=== PATIENT | female | born 1950 | race Caucasian/White ===

== ENCOUNTER → 2017-02-14 | Outpatient (CLI) | payer MEDICARE, OTHER ==
--- NOTE | 2017-02-14 17:09 | BD ---
EXAMINATION TYPE: MG DEXA axial skeleton. DATE OF EXAM: 02/14/2017 COMPARISON: 2012 CLINICAL HISTORY: disorder of bone Height: 5' Weight: 105 FRAX RISK QUESTIONS: Alcohol (3 or more units per day): no Family History (Parent hip fracture): no Glucocorticoids (More than 3mos): no (Ex: prednisone, prednisolone, methylprednisolone, dexamethasone, and hydrocortisone). History of Fracture in Adulthood: no Secondary Osteoporosis: 1. Type 1 Diabetes: no 2. Hyperthyroidism: no 3. Menopause before 45: no 4. Malnutrition: no 5. Chronic liver disease: no Rheumatoid Arthritis: no Current Tobacco Use: no RISK FACTORS HISTORY OF: Family History of Osteoporosis: Postmenopausal woman: MEDICATIONS: Additional Medications: pain Additional History: EXAM MEASUREMENTS: Bone mineral densitometry was performed using the [employer] ([employer]) System. Bone mineral density as measured about the Lumbar spine is: ----- L1-L4(G/cm2): 1.140 T Score Values are as follows: ----- L2: -0.8 ----- L3: -0.2 ----- L4: 0.3 ----- L1-L4: -0.3 Bone mineral density has: Decreased -2.6% since study of: 04/02/2013 Bone mineral density about the R hip (g/cm2): 0.791 Bone mineral density about the L hip (g/cm2): 0.798 T Score values are as follows: -----R Neck: -1.8 -----L Neck: -1.7 -----R Total: -2.1 -----L Total: -1.5 Bone mineral density has: Increased 1.6% since study of: 04/02/2013 IMPRESSION: Osteopenia (T Score between -2.5 and -1 as noted by T score values There is slightly increased risk of fracture and the patient may be considered for treatment. Re-Screen 2-5 years. Bone density has improved 1.6% from 04/02/2013 within the bilateral hips. Bone density has diminished 2.6% within the lumbar spine from 2012. NOTE: T-SCORE=SD OF THE YOUNG ADULT MEAN.
--- NOTE | 2017-02-15 12:43 | MM ---
Reason for exam: screening (asymptomatic). Last mammogram was performed 2 years and 2 months ago. History: Patient is postmenopausal and had first child at age 31. Family history of breast cancer in maternal aunt. Physical Findings: A clinical breast exam by your physician is recommended on an annual basis and results should be correlated with mammographic findings. MG 3D Screening Mammo W/Cad Bilateral CC and MLO view(s) were taken. Prior study comparison: December 22, 2014, bilateral MG screening mammo w CAD. April 02, 2013, bilateral digital screening mammo w/CAD. The breast tissue is heterogeneously dense. This may lower the sensitivity of mammography. No significant changes when compared with prior studies. ASSESSMENT: Benign, BI-RAD 2 RECOMMENDATION: Routine screening mammogram of both breasts in 1 year.
== END | disposition home or self-care (01) ==
LOC: RADMAMWWP 13:48
PROVIDERS: ATTEND Obstetrics & Gynecology
DX: Z12.31 Encounter for screening mammogram for malignant neoplasm of breast (principal); M85.80 Other specified disorders of bone density and structure, unspecified site
CPT/HCPCS: 77080; 77063; G0202

== ENCOUNTER 2017-03-29 23:34 | Emergency (ER) | payer MEDICARE, OTHER ==
[2017-03-29 23:39] VITALS: RESP 18
--- NOTE | 2017-03-30 00:23 | ED ---
Eye Problem HPI - General Chief complaint: Eye Problems Stated complaint: Got Clindamycin in eyes Time Seen by Provider: 03/29/17 23:46 Source: patient, RN notes reviewed Mode of arrival: ambulatory Limitations: no limitations - History of Present Illness Initial comments: Patient is a 66-year-old female presents to the emergency room for evaluation of bilateral eye burning. Patient states she's applying topical clindamycin to her face and dripped into both of her eyes. Patient states she has mild burning while blinking. Patient denies any eye redness or changes in vision. Patient states she flushed out both of her eyes with water immediately afterwards. - Related Data Home Medications Medication Instructions Recorded Confirmed Dextroamphetamine/Amphetamine 12.5 mg PO DAILY 06/20/14 03/29/17 [Adderall] Metaxalone [Skelaxin] 800 mg PO HS 06/20/14 03/29/17 Omeprazole [PriLOSEC] 20 mg PO DAILY 06/20/14 03/29/17 Sertraline [Zoloft] 50 mg PO DAILY 06/20/14 03/29/17 Fluticasone Propionate [Flonase] 1 spray EA NOSTRIL DAILY 08/05/14 03/29/17 Ipratropium [place] [Atrovent 2 sprays EA NOSTRIL BID 08/05/14 03/29/17 Nasal [place]] Morphine Sulfate [AVINza] 60 mg PO BID 08/05/14 03/29/17 traZODone HCL [Desyrel] 25 - 50 mg PO HS 08/05/14 03/29/17 Clindamycin Topical Soln 1 applic TOPICAL DAILY 03/29/17 03/29/17 [Cleocin-T Topical Soln] Allergies Allergy/AdvReac Type Severity Reaction Status Date / Time No Known Allergies Allergy Verified 03/29/17 23:39 Review of Systems ROS Statement: Those systems with pertinent positive or pertinent negative responses have been documented in the HPI. ROS Other: All systems not noted in ROS Statement are negative. Past Medical History Past Medical History: Fibromyalgia, GERD/Reflux Additional Past Medical History / Comment(s): ddd, arthritis History of Any Multi-Drug Resistant Organisms: None Reported Additional Past Surgical History / Comment(s): neck fusion surgery 2003, bunion 2011, sinus surgery Past Psychological History: No Psychological Hx Reported Smoking Status: Former smoker Past Alcohol Use History: None Reported Past Drug Use History: None Reported General Exam - General Exam Comments Initial Comments: sitting in exam room, no acute distress. Limitations: no limitations General appearance: alert, in no apparent distress Head exam: Present: atraumatic, normocephalic, normal inspection Eye exam: Present: normal appearance, PERRL, EOMI Pupils: Present: normal accommodation Expanded Eyelids: Normal Inspection: Bilateral Pupils: Regular, Round: Bilateral, Reactive: Bilateral Sclera/Conjunctival: Normal Inspection: Bilateral ENT exam: Present: normal exam Neck exam: Present: normal inspection Respiratory exam: Absent: respiratory distress Extremities exam: Present: normal inspection Back exam: Present: normal inspection Neurological exam: Present: alert, oriented X3, CN II-XII intact, normal gait Psychiatric exam: Present: normal affect, normal mood Skin exam: Present: warm, dry, intact, normal color. Absent: rash Course Vital Signs 03/29/17 03/30/17 23:36 01:46 Temperature 98.1 F 98.4 F Pulse Rate 67 60 Respiratory 18 18 Rate Blood Pressure 171/81 115/54 O2 Sat by Pulse 100 98 Oximetry Medical Decision Making - Medical Decision Making patient is a 66-year-old female presents to the emergency room for evaluation of bilateral eyes burning. Patient got clindamycin in bilateral eyes. patient' s bilateral eyes flushed out with 500 mL of normal saline. Patient states she' s having a lot better. Bilateral eyes evaluated under wood's lamp forcing dye no uptake noted. PH of bilateral eyes 7.0. Disposition Clinical Impression: Chemical exposure of eye Disposition: HOME SELF-CARE Condition: Good Instructions: Chemical Eye Browne (ED) Additional Instructions: Please follow up with primary care provider in 1-2 days. If any new symptom arises or symptoms worsen, return to ER as soon as possible. Referrals: Burton Woodward MD [Primary Care Provider] - 1-2 days Time of Disposition: 01:06
[2017-03-30 01:48] VITALS: BP 115/54; PULSE 60; TEMP 98.4
== END 2017-03-30 01:30 | disposition home or self-care (01) ==
LOC: EC 23:34
DX: Z77.098 Contact with and (suspected) exposure to other hazardous, chiefly nonmedicinal, chemicals (principal); K21.9 Gastro-esophageal reflux disease without esophagitis; Z87.891 Personal history of nicotine dependence; Z79.51 Long term (current) use of inhaled steroids; Z79.891 Long term (current) use of opiate analgesic; Z79.899 Other long term (current) drug therapy
CPT/HCPCS: 99283

== ENCOUNTER → 2017-06-01 | Outpatient (CLI) | payer MEDICARE, OTHER ==
--- NOTE | 2017-06-01 15:43 | XR ---
EXAMINATION TYPE: XR cervical spine comp DATE OF EXAM: 06/01/2017 COMPARISON: NONE HISTORY: 66-year-old female with pain, worse on the right TECHNIQUE: 5 views FINDINGS: No predental space widening or prevertebral soft tissue swelling. Postsurgical changes of C5-C7 ACDF. Alignment is maintained. Mild endplate spondylosis at C4-C5 above the fusion and at C7-T1 below the fusion. On the right, there is mild bony spondylotic neural foraminal narrowing at C3-C4 and C7-T1. On the le ft, there is mild bony neuroforaminal narrowing at C3-C4 and moderate at C4-C5. Normal odontoid view. IMPRESSION: 1. Status post C5-C7 ACDF with mild endplate spondylosis above and below the fusion at C4-C5 and C7-T 1, respectively. 2. Mild bony neuroforaminal narrowing on the right at C3-C4 and C7-T1 and on the left at C3-C4. Narro wing is moderate on the left at C4-C5.
--- NOTE | 2017-06-01 15:50 | XR ---
EXAMINATION TYPE: XR thoracic spine complete DATE OF EXAM: 06/01/2017 COMPARISON: NONE HISTORY: 66-year-old female with pain, worse on the right. TECHNIQUE: 3 views FINDINGS: 12-appearing thoracic vertebral bodies. Pedicles are visualized. Mild multilevel endplate spondylosis , more moderate in the upper third thoracic spine with loss of disc height and endplate sclerosis. Ve rtebral body heights are maintained. On the swimmer's view, there may be trace grade 1 anterolisthesi s at T3-T4 and T6-T7. IMPRESSION: 1. Mild multilevel spondylotic change though more moderate disc/end plate degenerative change in the upper third thoracic spine. 2. No vertebral compression collapse 3. Trace grade 1 anterolisthesis suggested at T3-T4 and T6-T7 on the swimmer's view.
== END | disposition home or self-care (01) ==
LOC: RADXRMAIN 14:35
PROVIDERS: ATTEND Anesthesiology
DX: M99.71 Connective tissue and disc stenosis of intervertebral foramina of cervical region (principal); M48.02 Spinal stenosis, cervical region; M47.812 Spondylosis without myelopathy or radiculopathy, cervical region; M47.814 Spondylosis without myelopathy or radiculopathy, thoracic region; M43.14 Spondylolisthesis, thoracic region; Z98.1 Arthrodesis status
CPT/HCPCS: 72050; 72072

== ENCOUNTER 2018-02-05 12:05 | Emergency (ER) | payer MEDICARE, OTHER ==
[2018-02-05 12:49] LABS: Basophils % (A) 0 %; Eosinophils # (A) 0.1 k/uL (0-0.7); Eosinophils % (A) 1 %; HCT 45.3 % (34.0-46.0); Lymphocytes % (A) 23 %; MCH 29.7 pg (25.0-35.0); MCHC 33.1 g/dL (31.0-37.0); MCV 89.8 fL (80.0-100.0); Mean Platelet Volume 6.9; Monocytes # (A) 0.2 k/uL (0-1.0); Monocytes % (A) 5 %; Neutrophils # (A) 3.1 k/uL (1.3-7.7); Neutrophils % (A) 70 %; Platelet Count 195 k/uL (150-450); RBC 5.04 m/uL (3.80-5.40); WBC 4.4 k/uL (3.8-10.6)
[2018-02-05 12:56] LABS: Appearance,Urine Clear (Clear); Bilirubin,Urine Negative (Negative); Blood,Urine Negative (Negative); Color,Urine Colorless; Glucose,Urine (UA) Negative (Negative); Ketones,Urine Negative (Negative); Leukocyte Esterase,Urine Negative (Negative); Nitrite,Urine Negative (Negative); PH, Urine 7.5 (5.0-8.0); Protein,Urine Negative (Negative); Specific Gravity,Urine 1.004 (1.001-1.035); Urobilinogen,Urine <2.0 mg/dL (<2.0)
[2018-02-05 13:01] LABS: ALT 36 U/L (9-52); AST 32 U/L (14-36); Albumin 4.6 g/dL (3.5-5.0); Alkaline Phosphatase 47 U/L (38-126); Amylase 58 U/L (30-110); Anion Gap 7 mmol/L; Blood Urea Nitrogen 15 mg/dL (7-17); Calcium 9.9 mg/dL (8.4-10.2); Carbon Dioxide 32 mmol/L (22-30); Chloride 105 mmol/L (98-107); Glucose 95 mg/dL (74-99); Lipase 33 U/L (23-300); Sodium 144 mmol/L (137-145); Total Bilirubin 0.4 mg/dL (0.2-1.3)
--- NOTE | 2018-02-05 13:06 | ED ---
General Adult HPI - General Chief complaint: Abdominal Pain Stated complaint: Abd Pain Time Seen by Provider: 02/05/18 12:59 Source: patient, RN notes reviewed Mode of arrival: ambulatory Limitations: no limitations - History of Present Illness Initial comments: Patient 67-year-old female presented to the emergency room today with a chief complaint of right upper quadrant pain. Patient does but the pain started one week ago. Patient does admit that pain is constant sharp pain located right upper quadrant. She believes it was gas pain. She does admit that she takes opioids due to chronic back pain. She is worried that this may be caused an obstruction. She does admit that she did go for a cleansing 4 days ago. States it has not helped her symptoms she was advised by the doctor to come here to the emergency room for further evaluation. Patient denies any other complaints. Patient denies any recent fever, chills, shortness of breath, chest pain, back pain, nausea or vomiting, numbness or tingling, dysuria or hematuria , constipation or diarrhea, headaches or visual changes, or any other complaints. - Related Data Home Medications Medication Instructions Recorded Confirmed Sertraline [Zoloft] 50 mg PO DAILY 06/20/14 02/05/18 traZODone HCL [Desyrel] 50 mg PO HS 08/05/14 02/05/18 Citrical 2 tab PO QID 02/05/18 02/05/18 Diclofenac Sodium 25 mg PO TID PRN 02/05/18 02/05/18 Docusate [Colace] 100 mg PO BID 02/05/18 02/05/18 Methylnaltrexone [place] [Relistor] 450 mg PO QAM 02/05/18 02/05/18 Morphine Sulfate/Naltrexone 1 cap PO Q12H 02/05/18 02/05/18 [Embeda ER 50-2 mg Capsule] [place]-3 Fatty Acids/Fish Oil [Fish 1 cap PO BID 02/05/18 02/05/18 Oil 1,000 mg Softgel] methylPREDNISolone [Medrol] 4 mg PO DAILY PRN 02/05/18 02/05/18 oxyCODONE-APAP 10-325MG [Percocet 1 tab PO Q8HR PRN 02/05/18 02/05/18 10-325 mg] Allergies Allergy/AdvReac Type Severity Reaction Status Date / Time No Known Allergies Allergy Verified 02/05/18 13:30 Review of Systems ROS Statement: Those systems with pertinent positive or pertinent negative responses have been documented in the HPI. ROS Other: All systems not noted in ROS Statement are negative. Past Medical History Past Medical History: Fibromyalgia, GERD/Reflux Additional Past Medical History / Comment(s): ddd, arthritis, constipation History of Any Multi-Drug Resistant Organisms: None Reported Additional Past Surgical History / Comment(s): neck fusion surgery 2003, bunion 2012, sinus surgery Past Psychological History: No Psychological Hx Reported Smoking Status: Former smoker Past Alcohol Use History: None Reported Past Drug Use History: None Reported General Exam - General Exam Comments Initial Comments: General: The patient is awake and alert, in no distress, and does not appear acutely ill. Eye: Pupils are equal, round and reactive to light, extra-ocular movements are intact. No nystagmus. There is normal conjunctiva bilaterally. No signs of icterus. Ears, nose, mouth and throat: There are moist mucous membranes and no oral lesions. Neck: The neck is supple, there is no tenderness or JVD. Cardiovascular: There is a regular rate and rhythm. No murmur, rub or gallop is appreciated. Respiratory: Lungs are clear to auscultation, respirations are non-labored, breath sounds are equal. No wheezes, stridor, rales, or rhonchi. Gastrointestinal: Soft, non-distended, non-tender abdomen without masses or organomegaly noted. There is no rebound or guarding present. No CVA tenderness. Musculoskeletal: Normal ROM, no tenderness. Strength 5/5. Sensation intact. Neurological: A&O x 3. CN II-XII intact, There are no obvious motor or sensory deficits. Coordination appears grossly intact. Speech is normal. Skin: Skin is warm and dry and no rashes or lesions are noted. Psychiatric: Cooperative, appropriate mood & affect, normal judgment. Limitations: no limitations Course Vital Signs 02/05/18 02/05/18 12:10 13:24 Temperature 98.4 F Pulse Rate 76 74 Respiratory 18 16 Rate Blood Pressure 191/78 176/73 O2 Sat by Pulse 99 97 Oximetry Medical Decision Making - Medical Decision Making Patient reexamined at this time shows no signs of distress. Patient states that she is feeling much better after enema here in the emergency room. She was able have bowel movement. Patient's labs been reviewed are unremarkable. X -ray did show moderate amount of stool sign of obstruction. Patient at this time doing well. Will be discharged home. - Lab Data Result diagrams: 02/05/18 12:35 02/05/18 12:35 Lab Results 02/05/18 02/05/18 02/05/18 Range/Units 12:35 12:35 12:35 WBC 4.4 (3.8-10.6) k/uL RBC 5.04 (3.80-5.40) m/uL Hgb 15.0 (11.4-16.0) gm/dL Hct 45.3 (34.0-46.0) % MCV 89.8 (80.0-100.0) fL MCH 29.7 (25.0-35.0) pg MCHC 33.1 (31.0-37.0) g/dL RDW 14.0 (11.5-15.5) % Plt Count 195 (150-450) k/uL Neutrophils % 70 % Lymphocytes % 23 % Monocytes % 5 % Eosinophils % 1 % Basophils % 0 % Neutrophils # 3.1 (1.3-7.7) k/uL Lymphocytes # 1.0 (1.0-4.8) k/uL Monocytes # 0.2 (0-1.0) k/uL Eosinophils # 0.1 (0-0.7) k/uL Basophils # 0.0 (0-0.2) k/uL Sodium 144 (137-145) mmol/L Potassium 4.0 (3.5-5.1) mmol/L Chloride 105 (98-107) mmol/L Carbon Dioxide 32 H (22-30) mmol/L Anion Gap 7 mmol/L BUN 15 (7-17) mg/dL Creatinine 0.58 (0.52-1.04) mg/dL Est GFR (CKD-EPI)AfAm >90 (>60 ml/min/1.73 sqM) Est GFR (CKD-EPI)NonAf >90 (>60 ml/min/1.73 sqM) Glucose 95 (74-99) mg/dL Calcium 9.9 (8.4-10.2) mg/dL Total Bilirubin 0.4 (0.2-1.3) mg/dL AST 32 (14-36) U/L ALT 36 (9-52) U/L Alkaline Phosphatase 47 (38-126) U/L Total Protein 7.0 (6.3-8.2) g/dL Albumin 4.6 (3.5-5.0) g/dL Amylase 58 (30-110) U/L Lipase 33 (23-300) U/L Urine Color Colorless Urine Appearance Clear (Clear) Urine pH 7.5 (5.0-8.0) Ur Specific [place] 1.004 (1.001-1.035) Urine Protein Negative (Negative) Urine Glucose (UA) Negative (Negative) Urine Ketones Negative (Negative) Urine Blood Negative (Negative) Urine Nitrite Negative (Negative) Urine Bilirubin Negative (Negative) Urine Urobilinogen <2.0 (<2.0) mg/dL Ur Leukocyte Esterase Negative (Negative) Disposition Clinical Impression: Constipation Disposition: HOME SELF-CARE Condition: Good Instructions: Constipation (ED) Additional Instructions: Please use medication as discussed. Please follow-up with family doctor in the next 2 days of symptoms have not improved. Please return to emergency room if the symptoms increase or worsen or for any other concerns. Is patient prescribed a controlled substance at d/c from ED?: No Referrals: Burton Woodward MD [Primary Care Provider] - 1-2 days Time of Disposition: 16:33
[2018-02-05 13:27] VITALS: RESP 16
--- NOTE | 2018-02-05 13:37 | XR ---
EXAMINATION TYPE: XR KUB DATE OF EXAM: 02/05/2018 1:14 PM CLINICAL HISTORY: Right upper quadrant pain for one week TECHNIQUE: Single upright image of the abdomen is obtained. COMPARISON: None. FINDINGS: There is a moderate amount retained colonic stool. Scattered gas is seen in nondilated smal l bowel loops. Gas and fecal material is seen in nondilated colon. There is no gross evidence of visc eromegaly, pneumoperitoneum, or abnormal calcification appreciated. The lung bases are clear and the osseous structures are intact. IMPRESSION: Moderate amount retained colonic stool in an overall nonobstructive bowel gas pattern.
[2018-02-05] MEDS ORDERED: MAGNESIUM CITRATE 296 ML BOTTLE PO ONE (16:33)
[2018-02-05 17:08] VITALS: BP 150/72; PULSE 68; TEMP 97.5
== END 2018-02-05 17:08 | disposition home or self-care (01) ==
LOC: EC 12:05
DX: K59.00 Constipation, unspecified (principal); M79.7 Fibromyalgia; M19.90 Unspecified osteoarthritis, unspecified site; Z87.891 Personal history of nicotine dependence; Z79.891 Long term (current) use of opiate analgesic; Z79.899 Other long term (current) drug therapy
CPT/HCPCS: 36415; 74018; 80053; 81003; 82150; 83690; 85025; 99284

== ENCOUNTER 2018-02-09 12:09 | Emergency (ER) | payer MEDICARE, OTHER ==
[2018-02-09 12:14] VITALS: RESP 18
--- NOTE | 2018-02-09 12:28 | ED ---
General Adult HPI - General Chief complaint: Abdominal Pain Stated complaint: Abd Pain Time Seen by Provider: 02/09/18 12:15 Source: patient, RN notes reviewed, old records reviewed Mode of arrival: ambulatory Limitations: no limitations - History of Present Illness Initial comments: 67-year-old female presenting with chief complaint of abdominal pain and constipation. Patient has been dealing with constipation for some time, her last bowel movement was Monday which was 5 days ago. She was seen in the emergency department at that time given an enema which did relieve her symptoms. She has not had a second bowel movement since that time. She was seen by her primary care physician yesterday with same complaint. She is on chronic pain medications she is also taking multiple medications for constipation with no relief. She has no vomiting. No fever. Pain is predominantly right-sided. Her primary care physician did mention that he was somewhat concerned about her gallbladder as her pain is in her right upper quadrant. Although the patient denies any fever or vomiting and pain has been progressive over the time she has not had a bowel movement. Last colonoscopy was 10 years ago. - Related Data Home Medications Medication Instructions Recorded Confirmed Sertraline [Zoloft] 50 mg PO DAILY 06/20/14 02/09/18 traZODone HCL [Desyrel] 50 mg PO HS 08/05/14 02/09/18 Citrical 2 tab PO QID 02/05/18 02/09/18 Docusate [Colace] 100 mg PO BID 02/05/18 02/09/18 Methylnaltrexone [place] [Relistor] 450 mg PO QAM 02/05/18 02/09/18 Morphine Sulfate/Naltrexone 1 cap PO Q12H 02/05/18 02/09/18 [Embeda ER 50-2 mg Capsule] L.acidoph,Paracasei, B.lactis 1 cap PO DAILY 02/09/18 02/09/18 [Probiotic] Linaclotide [Linzess] 145 mcg PO DAILY 02/09/18 02/09/18 Multivitamin,Therapeutic [Thera] 1 tab PO DAILY 02/09/18 02/09/18 Polyethylene Glycol 3350 [Miralax] 17 gm PO DAILY 02/09/18 02/09/18 Triamcinolone Acetonide [Nasacort] 1 spray EA NOSTRIL DAILY PRN 02/09/18 Allergies Allergy/AdvReac Type Severity Reaction Status Date / Time No Known Allergies Allergy Verified 02/09/18 12:31 Review of Systems ROS Statement: Those systems with pertinent positive or pertinent negative responses have been documented in the HPI. ROS Other: All systems not noted in ROS Statement are negative. Past Medical History Past Medical History: Fibromyalgia, GERD/Reflux Additional Past Medical History / Comment(s): ddd, arthritis, constipation History of Any Multi-Drug Resistant Organisms: None Reported Past Surgical History: No Surgical Hx Reported Additional Past Surgical History / Comment(s): neck fusion surgery 2003, bunion 2011, sinus surgery Past Psychological History: No Psychological Hx Reported Smoking Status: Former smoker Past Alcohol Use History: None Reported Past Drug Use History: None Reported General Exam Limitations: no limitations General appearance: alert, in no apparent distress Head exam: Present: atraumatic, normocephalic Eye exam: Present: normal appearance, PERRL ENT exam: Present: normal exam Neck exam: Present: normal inspection. Absent: tenderness, meningismus Respiratory exam: Present: normal lung sounds bilaterally. Absent: respiratory distress, wheezes Cardiovascular Exam: Present: regular rate, normal rhythm GI/Abdominal exam: Present: soft, distended, tenderness (Mild right-sided abdominal tenderness with right upper quadrant tenderness). Absent: guarding, rebound Extremities exam: Present: normal inspection, normal capillary refill. Absent: pedal edema Neurological exam: Present: alert, oriented X3, CN II-XII intact. Absent: motor sensory deficit Psychiatric exam: Present: normal affect, normal mood Skin exam: Present: warm, dry, intact. Absent: cyanosis, diaphoretic Course Vital Signs 02/09/18 12:12 Temperature 98.4 F Pulse Rate 81 Respiratory 18 Rate Blood Pressure 133/63 O2 Sat by Pulse 98 Oximetry Medical Decision Making - Medical Decision Making 67-year-old female presenting for constipation. Last bowel movement was 5 days prior. X-rays obtained, this does show retained left colonic stool. Ultrasound is obtained because of worsening right upper quadrant pain and primary care physician was concerned about gallbladder pathology. This does show positive De Paz's which is consistent with her pain location however there is no ulnar wall thickening, no shadowing stones, no pericholecystic fluid. Common bile duct mildly dilated at 1 cm. Laboratory studies reveal normal AST, normal ALT, normal lipase. Patient's history is more consistent with constipation. Case is discussed with Dr. Veloz who is surgeon digital communications manager, he agrees that history is more consistent with constipation. He recommends patient follow up as an outpatient and may require HIDA scan. No need for inpatient evaluation at this time. After an enema the patient is feeling better she's had a one large bowel movement. She will continue Colace, MiraLAX , she will add magnesium citrate. She will follow up with GI for colonoscopy. She will follow-up with general surgery for evaluation of gallbladder. She will return to emergency department with worsening or changing symptoms. - Lab Data Result diagrams: 02/09/18 14:00 02/09/18 14:00 Lab Results 02/09/18 02/09/18 02/09/18 Range/Units 14:00 14:00 14:25 WBC 4.6 (3.8-10.6) k/uL RBC 4.87 (3.80-5.40) m/uL Hgb 14.3 (11.4-16.0) gm/dL Hct 43.0 (34.0-46.0) % MCV 88.3 (80.0-100.0) fL MCH 29.4 (25.0-35.0) pg MCHC 33.3 (31.0-37.0) g/dL RDW 13.2 (11.5-15.5) % Plt Count 214 (150-450) k/uL Neutrophils % 62 % Lymphocytes % 28 % Monocytes % 6 % Eosinophils % 1 % Basophils % 1 % Neutrophils # 2.9 (1.3-7.7) k/uL Lymphocytes # 1.3 (1.0-4.8) k/uL Monocytes # 0.3 (0-1.0) k/uL Eosinophils # 0.1 (0-0.7) k/uL Basophils # 0.0 (0-0.2) k/uL Sodium 143 (137-145) mmol/L Potassium 4.4 (3.5-5.1) mmol/L Chloride 104 (98-107) mmol/L Carbon Dioxide 33 H (22-30) mmol/L Anion Gap 6 mmol/L BUN 18 H (7-17) mg/dL Creatinine 0.56 (0.52-1.04) mg/dL Est GFR (CKD-EPI)AfAm >90 (>60 ml/min/1.73 sqM) Est GFR (CKD-EPI)NonAf >90 (>60 ml/min/1.73 sqM) Glucose 95 (74-99) mg/dL Calcium 9.6 (8.4-10.2) mg/dL Total Bilirubin 0.4 (0.2-1.3) mg/dL AST 36 (14-36) U/L ALT 45 (9-52) U/L Alkaline Phosphatase 48 (38-126) U/L Total Protein 6.8 (6.3-8.2) g/dL Albumin 4.5 (3.5-5.0) g/dL Amylase 56 (30-110) U/L Lipase 22 L (23-300) U/L Urine Color Light Yellow Urine Appearance Turbid H (Clear) Urine pH 8.5 H (5.0-8.0) Ur Specific [place] 1.014 (1.001-1.035) Urine Protein Negative (Negative) Urine Glucose (UA) Negative (Negative) Urine Ketones Negative (Negative) Urine Blood Negative (Negative) Urine Nitrite Negative (Negative) Urine Bilirubin Negative (Negative) Urine Urobilinogen <2.0 (<2.0) mg/dL Ur Leukocyte Esterase Negative (Negative) Urine WBC 30 H (0-5) /hpf Ur Squamous Epith Cells 1 (0-4) /hpf Amorphous Sediment Few H (None) /hpf Urine Mucus Rare H (None) /hpf Disposition Clinical Impression: Constipation, Abdominal pain Disposition: HOME SELF-CARE Condition: Good Instructions: Abdominal Pain (ED) Additional Instructions: Please continue Colace, MiraLAX, and add magnesium citrate. Return to the emergency department with worsening or changing symptoms including fever, vomiting or worsening pain. Follow-up with both gastroenterology and general surgery. Is patient prescribed a controlled substance at d/c from ED?: No Referrals: Burton Woodward MD [Primary Care Provider] - 1-2 days Gay Hdz MD [STAFF PHYSICIAN] - 1-2 days Simran Veloz DO [Doctor of Osteopathic Medicine] - 1-2 days Time of Disposition: 14:59
--- NOTE | 2018-02-09 12:37 | XR ---
EXAMINATION TYPE: XR KUB DATE OF EXAM: 02/09/2018 12:32 PM CLINICAL HISTORY: Constipation. Right-sided abdominal pain. TECHNIQUE: Single upright image of the abdomen is obtained. COMPARISON: None. FINDINGS: Few air-fluid levels are seen within the ascending colon and hepatic flexure within nondila shruti colon. Moderate amount retained ascending colonic stool is noted with stool in the rectal vault. No small bowel dilatation is seen. There is no visceromegaly, pneumoperitoneum, or abnormal calcifica tion appreciated. The lung bases are clear and the osseous structures are intact. Mild bilateral femo ral acetabular arthropathy and mild degenerative changes of the lumbar spine are noted. IMPRESSION: Findings favoring mild colonic ileus and retained stool within the descending colon indic ating constipation. Nonobstructive bowel gas pattern.
--- NOTE | 2018-02-09 13:39 | US ---
EXAMINATION TYPE: US gallbladder DATE OF EXAM: 02/09/2018 COMPARISON: NONE CLINICAL HISTORY: Pain. Constipation and RUQ pain x couple weeks EXAM MEASUREMENTS: Liver Length: 13.6 cm Gallbladder Wall: 0.2 cm CBD: 1.0 cm Right Kidney: 9.3 x 4.4 x 4.5 cm Pancreas: duct seen measuring 0.3cm, tail obscured by overlying midline bowel gas Liver: multiple cysts seen with largest bi lobed cyst seen in left lobe measuring 2.5 x 1.9 x 2.4cm Gallbladder: wnl Evidence for sonographic De Paz's sign: yes CBD: dilated at 1.0cm Right Kidney: wnl IMPRESSION: Elongation of the gallbladder and abnormally dilated common bile duct up to 1.0 cm with s onographic positive De Paz sign. Findings are suspicious for acute cholecystitis. Correlate with seru m laboratory values. Confirmation could be performed with HIDA scan if clinical findings are equivoca l.
[2018-02-09 14:21] LABS: Basophils % (A) 1 %; Eosinophils # (A) 0.1 k/uL (0-0.7); Eosinophils % (A) 1 %; HGB 14.3 gm/dL (11.4-16.0); Lymphocytes # (A) 1.3 k/uL (1.0-4.8); Lymphocytes % (A) 28 %; MCH 29.4 pg (25.0-35.0); MCHC 33.3 g/dL (31.0-37.0); MCV 88.3 fL (80.0-100.0); Monocytes # (A) 0.3 k/uL (0-1.0); Monocytes % (A) 6 %; Neutrophils # (A) 2.9 k/uL (1.3-7.7); Neutrophils % (A) 62 %; Platelet Count 214 k/uL (150-450); RBC 4.87 m/uL (3.80-5.40); RDW 13.2 % (11.5-15.5); WBC 4.6 k/uL (3.8-10.6)
[2018-02-09 14:32] LABS: ALT 45 U/L (9-52); AST 36 U/L (14-36); Albumin 4.5 g/dL (3.5-5.0); Alkaline Phosphatase 48 U/L (38-126); Amylase 56 U/L (30-110); Anion Gap 6 mmol/L; Blood Urea Nitrogen 18 mg/dL (7-17); Calcium 9.6 mg/dL (8.4-10.2); Carbon Dioxide 33 mmol/L (22-30); Chloride 104 mmol/L (98-107); Glucose 95 mg/dL (74-99); Lipase 22 U/L (23-300); Potassium 4.4 mmol/L (3.5-5.1); Sodium 143 mmol/L (137-145); Total Bilirubin 0.4 mg/dL (0.2-1.3); Total Protein 6.8 g/dL (6.3-8.2)
[2018-02-09 14:40] LABS: Amorphous Sediment,Urine Few /hpf; Appearance,Urine Turbid (Clear); Bilirubin,Urine Negative (Negative); Blood,Urine Negative (Negative); Color,Urine Light Yellow; Glucose,Urine (UA) Negative (Negative); Ketones,Urine Negative (Negative); Leukocyte Esterase,Urine Negative (Negative); Mucus,Urine Rare /hpf; Nitrite,Urine Negative (Negative); PH, Urine 8.5 (5.0-8.0); Protein,Urine Negative (Negative); Specific Gravity,Urine 1.014 (1.001-1.035); Squamous Epithelial Cell,Urine 1 /hpf (0-4); Urobilinogen,Urine <2.0 mg/dL (<2.0); WBC,Urine 30 /hpf (0-5)
[2018-02-09 15:19] VITALS: BP 118/57; PULSE 80; TEMP 98.7
== END 2018-02-09 15:19 | disposition home or self-care (01) ==
LOC: EC 12:09
DX: K59.00 Constipation, unspecified (principal); R10.11 Right upper quadrant pain; M79.7 Fibromyalgia; M19.90 Unspecified osteoarthritis, unspecified site; Z87.891 Personal history of nicotine dependence; Z79.891 Long term (current) use of opiate analgesic; Z79.899 Other long term (current) drug therapy
CPT/HCPCS: 36415; 74018; 76705; 80053; 81001; 82150; 83690; 85025; 99285

== ENCOUNTER 2018-03-15 07:36 | Day surgery (SDC) | payer MEDICARE, OTHER ==
[~2018-03-15 07:36] MED LIST: LACTATED RINGERS 1,000 ML IV SCH
[2018-03-15] MEDS ORDERED: LIDOCAINE 1% 20 ML VIAL (10MG/ML) FOR IV START INTRADERMA ONE (08:00)
[2018-03-15 08:05] VITALS: TEMP 97.7
[2018-03-15] MEDS ORDERED: LIDOCAINE 1% INJ 10MG/ML (20 ML MDV) ONE (08:29)
[2018-03-15] MEDS ORDERED: PROPOFOL 10 MG/ML 20 ML VIAL IV ONE (08:29)
[2018-03-15 09:10] VITALS: PULSE 56
--- NOTE | 2018-03-15 09:10 | P.OP ---
Date of Procedure: 03/15/18 Preoperative Diagnosis: Screening Postoperative Diagnosis: Normal appearing colon Procedure(s) Performed: Colonoscopy Anesthesia: MAC Surgeon: Delroy Iniguez Estimated Blood Loss (ml): 0 Condition: stable Disposition: PACU Indications for Procedure: Screening colonoscopy Description of Procedure: Patient was brought to endo suite. Placed in left lateral decub position. Timeout preformed. Correct patient site and procedure was noted. Rectal exam preformed. No abnormalities felt. Scope was then passed form rectum to cecum with ease. Slowly withdrawn visualizing all mota of the colon on the way out. No abnormalities were noted. Scope was retroflexed in rectum and no abnormalities noted. Patient tolerated procedure well no apparent complications.
[2018-03-15 09:22] VITALS: BP 108/63; RESP 18
== END 2018-03-15 09:40 | disposition home or self-care (01) ==
LOC: ORWHC2ENDO 07:36
PROVIDERS: ATTEND Student in an Organized Health Care Education/Training Program
DX: Z12.11 Encounter for screening for malignant neoplasm of colon (principal); R10.11 Right upper quadrant pain; K83.8 Other specified diseases of biliary tract; K21.9 Gastro-esophageal reflux disease without esophagitis; M19.90 Unspecified osteoarthritis, unspecified site; Z79.52 Long term (current) use of systemic steroids; Z79.899 Other long term (current) drug therapy
CPT/HCPCS: J2001; J2704; G0121; 45378

== ENCOUNTER 2018-09-13 12:40 | Emergency (ER) | payer MEDICARE, OTHER ==
[2018-09-13 12:52] VITALS: BP 122/70; PULSE 84; RESP 18; TEMP 98.2
--- NOTE | 2018-09-13 14:19 | ED ---
General Adult HPI - General Chief complaint: Abdominal Pain Stated complaint: poss bowel obstruction Time Seen by Provider: 09/13/18 12:50 Source: patient, RN notes reviewed Mode of arrival: ambulatory Limitations: no limitations - History of Present Illness Initial comments: This a 67-year-old female presents emergency Department complaining of some right upper quadrant abdominal pain. Patient states she's had this multiple times in the past and is been constipation. Patient states he feels exactly like it has no past. Patient states she just started taking mag citrate yesterday he started having slight results today but the pain persists or she decided come to the emergency department. Patient states she also is on chronic opiates for pain and she's been on those for about 10 years. Patient states this is the cause of her constipation. Patient denies any nausea vomiting. Patient states she's eating normally and drinking normally. Patient denies any chest pain difficulty breathing shortest breath. - Related Data Home Medications Medication Instructions Recorded Confirmed Sertraline [Zoloft] 50 mg PO DAILY 06/20/14 09/13/18 traZODone HCL [Desyrel] 50 mg PO HS 08/05/14 09/13/18 Docusate [Colace] 100 mg PO BID 02/05/18 09/13/18 Methylnaltrexone [place] [Relistor] 450 mg PO QAM 02/05/18 09/13/18 Multivitamin,Therapeutic [Thera] 1 tab PO DAILY 02/09/18 09/13/18 Polyethylene Glycol 3350 [Miralax] 17 gm PO DAILY 02/09/18 09/13/18 Triamcinolone Acetonide [Nasacort] 1 spray EA NOSTRIL DAILY PRN 02/09/18 Calcium Carb/Vitamin D3/Vit K1 1 each PO DAILY 03/12/18 09/13/18 [Citracal Soft Chew] Fish Oil/Dha/Epa [Fish Oil 1,200 1 each PO DAILY 03/12/18 09/13/18 mg Fish Oil] Morphine Sulfate/Naltrexone 1 cap PO TID 09/13/18 09/13/18 [Embeda ER 30-1.2 mg Capsule] Allergies Allergy/AdvReac Type Severity Reaction Status Date / Time No Known Allergies Allergy Verified 09/13/18 14:15 Review of Systems ROS Statement: Those systems with pertinent positive or pertinent negative responses have been documented in the HPI. ROS Other: All systems not noted in ROS Statement are negative. Past Medical History Past Medical History: Fibromyalgia, GERD/Reflux, Musculoskeletal Disorder, Osteoarthritis (OA) Additional Past Medical History / Comment(s): chronic constipation History of Any Multi-Drug Resistant Organisms: None Reported Past Surgical History: No Surgical Hx Reported Additional Past Surgical History / Comment(s): neck fusion surgery 2004, bunion 2011, sinus surgery; colonoscopy Past Anesthesia/Blood Transfusion Reactions: No Reported Reaction Past Psychological History: No Psychological Hx Reported Smoking Status: Former smoker Past Alcohol Use History: None Reported Past Drug Use History: None Reported - Past Family History Mother Family Medical History: Cancer Sister(s) Family Medical History: Cancer General Exam - General Exam Comments Initial Comments: GENERAL: Patient is well-developed and well-nourished. Patient is nontoxic and well- hydrated and is in no acute distress. ENT: Neck is soft and supple. No significant lymphadenopathy is noted. Oropharynx is clear. Moist mucous membranes. Neck has full range of motion without eliciting any pain. EYES: The sclera were anicteric and conjunctiva were pink and moist. Extraocular movements were intact and pupils were equal round and reactive to light. Eyelids were unremarkable. PULMONARY: Unlabored respirations. Good breath sounds bilaterally. No audible rales rhonchi or wheezing was noted. CARDIOVASCULAR: There is a regular rate and rhythm without any murmurs gallops or rubs. ABDOMEN: Soft and nontender with normal bowel sounds. SKIN: Skin is clear with no lesions or rashes and otherwise unremarkable. NEUROLOGIC: Patient is alert and oriented x3. Cranial nerves II through XII are grossly intact. Motor and sensory are also intact. Normal speech, volume and content. Symmetrical smile. MUSCULOSKELETAL: Normal extremities with adequate strength and full range of motion. No lower extremity swelling or edema. No calf tenderness. LYMPHATICS: No significant lymphadenopathy is noted PSYCHIATRIC: Normal psychiatric evaluation. Limitations: no limitations Course Vital Signs 09/13/18 12:49 Temperature 98.2 F Pulse Rate 84 Respiratory 18 Rate Blood Pressure 122/70 O2 Sat by Pulse 99 Oximetry Medical Decision Making - Medical Decision Making X-ray shows some constipation. Patient had an enema in the emergency department with some results patient is comfortable going home. - Lab Data Result diagrams: 09/13/18 15:20 01/10/19 15:20 Lab Results 09/13/18 09/13/18 Range/Units 15:20 15:20 WBC 4.6 (3.8-10.6) k/uL RBC 4.37 (3.80-5.40) m/uL Hgb 13.4 (11.4-16.0) gm/dL Hct 39.7 (34.0-46.0) % MCV 90.9 (80.0-100.0) fL MCH 30.8 (25.0-35.0) pg MCHC 33.8 (31.0-37.0) g/dL RDW 13.1 (11.5-15.5) % Plt Count 189 (150-450) k/uL Neutrophils % 72 % Lymphocytes % 19 % Monocytes % 7 % Eosinophils % 1 % Basophils % 0 % Neutrophils # 3.3 (1.3-7.7) k/uL Lymphocytes # 0.9 L (1.0-4.8) k/uL Monocytes # 0.3 (0-1.0) k/uL Eosinophils # 0.1 (0-0.7) k/uL Basophils # 0.0 (0-0.2) k/uL Sodium 139 (137-145) mmol/L Potassium 4.4 (3.5-5.1) mmol/L Chloride 105 (98-107) mmol/L Carbon Dioxide 33 H (22-30) mmol/L Anion Gap 1 mmol/L BUN 16 (7-17) mg/dL Creatinine 0.62 (0.52-1.04) mg/dL Est GFR (CKD-EPI)AfAm >90 (>60 ml/min/1.73 sqM) Est GFR (CKD-EPI)NonAf >90 (>60 ml/min/1.73 sqM) Glucose 94 (74-99) mg/dL Calcium 9.5 (8.4-10.2) mg/dL Total Bilirubin 0.3 (0.2-1.3) mg/dL AST 29 (14-36) U/L ALT 37 (9-52) U/L Alkaline Phosphatase 42 (38-126) U/L Total Protein 6.5 (6.3-8.2) g/dL Albumin 4.1 (3.5-5.0) g/dL Amylase 50 (30-110) U/L Lipase 29 (23-300) U/L Disposition Clinical Impression: Constipation Disposition: HOME SELF-CARE Condition: Good Instructions: Constipation (ED) Is patient prescribed a controlled substance at d/c from ED?: No Referrals: Burton Woodward MD [Primary Care Provider] - 1-2 days Time of Disposition: 17:42
[2018-09-13 15:30] LABS: Basophils % (A) 0 %; Eosinophils # (A) 0.1 k/uL (0-0.7); Eosinophils % (A) 1 %; HCT 39.7 % (34.0-46.0); HGB 13.4 gm/dL (11.4-16.0); Lymphocytes # (A) 0.9 k/uL (1.0-4.8); Lymphocytes % (A) 19 %; MCH 30.8 pg (25.0-35.0); MCHC 33.8 g/dL (31.0-37.0); MCV 90.9 fL (80.0-100.0); Mean Platelet Volume 7.3; Monocytes # (A) 0.3 k/uL (0-1.0); Monocytes % (A) 7 %; Neutrophils # (A) 3.3 k/uL (1.3-7.7); Neutrophils % (A) 72 %; Platelet Count 189 k/uL (150-450); RBC 4.37 m/uL (3.80-5.40); RDW 13.1 % (11.5-15.5); WBC 4.6 k/uL (3.8-10.6)
--- NOTE | 2018-09-13 15:31 | XR ---
EXAMINATION TYPE: XR KUB DATE OF EXAM: 09/13/2018 3:26 PM CLINICAL HISTORY: Right-sided pain and constipation. TECHNIQUE: Single upright KUB image of the abdomen is obtained. COMPARISON: Abdominal x-ray February 09, 2018.. FINDINGS: Scattered gas is seen in non-distended small bowel loops. Gas and fecal material is seen in non-distended colon. Scattered pelvic phleboliths are present. The lung bases are clear. Degenerativ e change L4-L5 level with disc space narrowing is redemonstrated. No pneumoperitoneum or suspicious c alcifications are present. IMPRESSION: Overall nonobstructive bowel gas pattern. No significant change from prior.
[2018-09-13 15:39] LABS: ALT 37 U/L (9-52); AST 29 U/L (14-36); Albumin 4.1 g/dL (3.5-5.0); Alkaline Phosphatase 42 U/L (38-126); Amylase 50 U/L (30-110); Anion Gap 1 mmol/L; Blood Urea Nitrogen 16 mg/dL (7-17); Calcium 9.5 mg/dL (8.4-10.2); Carbon Dioxide 33 mmol/L (22-30); Chloride 105 mmol/L (98-107); Glucose 94 mg/dL (74-99); Lipase 29 U/L (23-300); Potassium 4.4 mmol/L (3.5-5.1); Sodium 139 mmol/L (137-145); Total Bilirubin 0.3 mg/dL (0.2-1.3); Total Protein 6.5 g/dL (6.3-8.2)
== END 2018-09-13 17:58 | disposition home or self-care (01) ==
LOC: EC 12:40
DX: K59.00 Constipation, unspecified (principal); Z79.891 Long term (current) use of opiate analgesic; Z79.899 Other long term (current) drug therapy; Z87.891 Personal history of nicotine dependence; Z98.1 Arthrodesis status
CPT/HCPCS: 36415; 74018; 80053; 82150; 83690; 85025; 99284

== ENCOUNTER → 2018-09-18 | Outpatient (CLI) | payer MEDICARE, OTHER ==
--- NOTE | 2018-09-18 12:14 | US ---
EXAMINATION TYPE: US abdomen complete DATE OF EXAM: 09/18/2018 COMPARISON: US gallbladder 02/09/2018 CLINICAL HISTORY: R10.9 ABD PAIN. RUQ pain EXAM MEASUREMENTS: Liver Length: 12.5 cm Gallbladder Wall: 0.1 cm CBD: 0.9 cm Spleen: 8.4 cm Right Kidney: 8.9 x 3.6 x 4.8 cm Left Kidney: 9.1 x 4.0 x 3.9 cm Pancreas: Duct visualized measuring 0.2 cm. Tail obscured by bowel gas Liver: Multiple cystic areas visualized, largest left lobe measuring 2.3 x 1.8 x 2.3 cm Gallbladder: wnl Evidence for sonographic De Paz's sign: No CBD: Dilated Spleen: wnl Right Kidney: No hydronephrosis or masses seen Left Kidney: No hydronephrosis or masses seen Upper IVC: wnl Abd Aorta: wnl The visualized liver redemonstrates several thin walled cysts. The intrahepatic portion of the IVC a nd proximal abdominal aorta are within normal limits. There is no evidence of cholelithiasis. Gallbl adder fold noted. The visualized portions of the pancreas are homogenous. The spleen is unremarkable . Kidneys are symmetric and free of hydronephrosis. No renal lesions are seen. Common bile duct rem ains mildly dilated with persistent mild central intrahepatic ductal dilatation. IMPRESSION: No significant change from prior ultrasound. No new shadowing mobile gallstones or new ul trasound evidence for acute cholecystitis.
== END ==
LOC: RADUSWWP 08:49
DX: R10.9 Unspecified abdominal pain (principal)
CPT/HCPCS: 76700

== ENCOUNTER → 2019-03-27 | Outpatient (CLI) | payer MEDICARE, OTHER ==
--- NOTE | 2019-03-27 21:53 | BD ---
EXAMINATION TYPE: Axial Bone Density DATE OF EXAM: 03/27/2019 COMPARISON: 02/14/2017 CLINICAL HISTORY: Disorder of bone. Postmenopausal female. Height: 59.5 IN Weight: 100 LBS FRAX RISK QUESTIONS: Secondary Osteoporosis: RISK FACTORS HISTORY OF: Family History of Osteoporosis: YES MOTHER Active: YES Diet low in dairy products/other sources of calcium: YES Postmenopausal woman: AGE 49 MEDICATIONS: Additional Medications: CALCIUM, PAIN MEDS EXAM MEASUREMENTS: Bone mineral densitometry was performed using the [employer] System. Bone mineral density as measured about the Lumbar spine is: ----- L1-L4(G/cm2): 1.138 T Score Values are as follows: ----- L2: -1.2 ----- L3: -0.6 ----- L4: 0.8 ----- L1-L4: -0.3 Bone mineral density has: Decreased -0.3% since study of: 02/14/2017 Bone mineral density about the R hip (g/cm2): 0.752 Bone mineral density about the L hip (g/cm2): 0.721 T Score values are as follows: -----R Neck: -2.1 -----L Neck: -2.3 -----R Total: -2.4 -----L Total: -1.9 Bone mineral density has: Decreased -5.9% since study of: 02/14/2017 IMPRESSION: Osteopenia (T Score between -2.5 and -1) persists in both hips. There remains slightly increased risk of fracture and the patient may be considered for treatment. Re-Screen 2-5 years. NOTE: T-SCORE=SD OF THE YOUNG ADULT MEAN.
--- NOTE | 2019-03-28 10:13 | MM ---
Reason for exam: screening (asymptomatic). Last mammogram was performed 2 years and 1 month ago. History: Patient is postmenopausal and had first child at age 31. Family history of breast cancer in maternal aunt. Physical Findings: A clinical breast exam by your physician is recommended on an annual basis and results should be correlated with mammographic findings. MG 3D Screening Mammo W/Cad Bilateral CC and MLO view(s) were taken. Prior study comparison: February 14, 2017, bilateral MG 3d screening mammo w/cad. December 22, 2014, bilateral MG screening mammo w CAD. The breast tissue is heterogeneously dense. This may lower the sensitivity of mammography. No suspicious abnormality. No significant changes when compared with prior studies. ASSESSMENT: Negative, BI-RAD 1 RECOMMENDATION: Routine screening mammogram of both breasts in 1 year.
== END | disposition home or self-care (01) ==
LOC: RADMAMWWP 13:50
PROVIDERS: ATTEND Obstetrics & Gynecology
DX: Z12.31 Encounter for screening mammogram for malignant neoplasm of breast (principal); M85.88 Other specified disorders of bone density and structure, other site
CPT/HCPCS: 77063; 77067; 77080

== ENCOUNTER 2019-10-28 19:19 | Emergency (ER) | payer MEDICARE, OTHER ==
[2019-10-28 19:23] VITALS: BP 168/75; PULSE 83; RESP 20; TEMP 98.8
[2019-10-28] MEDS ORDERED: NEOMYCIN-POLYMYXIN-DEXAMETH OINT 3.5 GM TUBE RIGHT EYE STA (19:42)
[2019-10-28] MEDS ORDERED: IBUPROFEN 600 MG STARTER PACK 4 TAB BTL PO STA (19:43)
--- NOTE | 2019-10-28 20:11 | ED ---
Eye Problem HPI - General Chief complaint: Eye Problems Stated complaint: R eye pain Time Seen by Provider: 10/28/19 19:25 Source: patient Mode of arrival: ambulatory Limitations: no limitations - History of Present Illness Initial comments: 69-year-old female patient presents to the emergency department today for evaluation of burning to the right eye. Patient states that she underwent cataract surgery this morning. Patient states she's had her I covered for the entire day. Patient states this evening she developed a burning sensation to the eye. States it feels like there may be a foreign body present. Patient denies taking any medication for her symptoms. She denies any bending or lifting. States she has been following all directions. She denies any fever or chills.Patient denies any headache, neck pain, back pain, chest pain, shortness of breath, dizziness, weakness, abdominal pain, nausea, vomiting, or difficulties with bowel movements or urination. - Related Data Home Medications Medication Instructions Recorded Confirmed Sertraline [Zoloft] 50 mg PO DAILY 06/20/14 09/13/18 traZODone HCL [Desyrel] 50 mg PO HS 08/05/14 09/13/18 Docusate [Colace] 100 mg PO BID 02/05/18 09/13/18 Methylnaltrexone [place] [Relistor] 450 mg PO QAM 02/05/18 09/13/18 Multivitamin,Therapeutic [Thera] 1 tab PO DAILY 02/09/18 09/13/18 Polyethylene Glycol 3350 [Miralax] 17 gm PO DAILY 02/09/18 09/13/18 Triamcinolone Acetonide [Nasacort] 1 spray EA NOSTRIL DAILY PRN 02/09/18 09/13/18 Calcium Carb/Vitamin D3/Vit K1 1 each PO DAILY 03/12/18 09/13/18 [Citracal Soft Chew] Fish Oil/Dha/Epa [Fish Oil 1,200 1 each PO DAILY 03/12/18 09/13/18 mg Fish Oil] Morphine Sulfate/Naltrexone 1 cap PO TID 09/13/18 09/13/18 [Embeda ER 30-1.2 mg Capsule] Allergies Allergy/AdvReac Type Severity Reaction Status Date / Time No Known Allergies Allergy Verified 10/28/19 19:24 Review of Systems ROS Statement: Those systems with pertinent positive or pertinent negative responses have been documented in the HPI. ROS Other: All systems not noted in ROS Statement are negative. Past Medical History Past Medical History: Fibromyalgia, GERD/Reflux, Musculoskeletal Disorder, Osteoarthritis (OA) Additional Past Medical History / Comment(s): chronic constipation History of Any Multi-Drug Resistant Organisms: None Reported Past Surgical History: No Surgical Hx Reported Additional Past Surgical History / Comment(s): neck fusion surgery 2004, bunion 2011, sinus surgery; colonoscopy Past Anesthesia/Blood Transfusion Reactions: No Reported Reaction Past Psychological History: No Psychological Hx Reported Smoking Status: Former smoker Past Alcohol Use History: None Reported Past Drug Use History: None Reported - Past Family History Mother Family Medical History: Cancer Sister(s) Family Medical History: Cancer General Exam Limitations: no limitations General appearance: alert, in no apparent distress, other (This is a well- developed, well-nourished adult female patient in no acute distress. Vital signs upon presentation are temperature 98.8F, pulse 83, respirations 20, blood pressure 168/75, pulse ox 99% on room air.) Eye exam: Present: other (Right eye examination reveals dilated pupil, there is a white lesion to the left lateral pupil. No conjunctival injection. No drainage. Patient is able to visualize light. ) Respiratory exam: Present: normal lung sounds bilaterally. Absent: respiratory distress, wheezes, rales, rhonchi, stridor Cardiovascular Exam: Present: regular rate, normal rhythm, normal heart sounds. Absent: systolic murmur, diastolic murmur, rubs, gallop, clicks Neurological exam: Present: alert, oriented X3, CN II-XII intact Psychiatric exam: Present: normal affect, normal mood Skin exam: Present: warm, dry, intact, normal color. Absent: rash Course Vital Signs 10/28/19 19:21 Temperature 98.8 F Pulse Rate 83 Respiratory 20 Rate Blood Pressure 168/75 O2 Sat by Pulse 99 Oximetry Medical Decision Making - Medical Decision Making 69 year-old female patient presented to the emergency department today for evaluation of burning to the right eye. Physical examination did reveal a dilated right pupil no conjunctival injection, no drainage. Case was discussed with Dr. Burton the patient's bag tester who recommends applying Maxitrol ointment to the right eye and reapplying the bandage. Patient did report improved symptoms after medication administration. She will be discharged with ibuprofen and instructed to take benadryl to help her sleep. She does have a f ollow up appointment in the morning. She is urged to keep this appointment. Return parameters discussed in detail. She verbalizes understanding and agrees with this plan. Disposition Clinical Impression: Eye pain Disposition: HOME SELF-CARE Condition: Good Instructions (If sedation given, give patient instructions): Eye Pain (ED) Additional Instructions: Use the ointment twice daily. Follow up with Dr. Burton in the morning as he had planned. Return to the emergency department immediately for any new, worsening, or concerning symptoms. Is patient prescribed a controlled substance at d/c from ED?: No Referrals: Burton Woodawrd MD [Primary Care Provider] - 1-2 days Time of Disposition: 20:11
== END 2019-10-28 20:17 | disposition home or self-care (01) ==
LOC: EC 19:19
DX: H57.11 Ocular pain, right eye (principal); G89.18 Other acute postprocedural pain; M79.7 Fibromyalgia; M19.90 Unspecified osteoarthritis, unspecified site; K59.09 Other constipation; Z98.49 Cataract extraction status, unspecified eye; Z87.891 Personal history of nicotine dependence; Z79.891 Long term (current) use of opiate analgesic; Z79.899 Other long term (current) drug therapy
CPT/HCPCS: 99283

== ENCOUNTER → 2020-03-17 | Outpatient (CLI) | payer MEDICARE, OTHER ==
--- NOTE | 2020-03-17 17:54 | US ---
EXAMINATION TYPE: US carotid duplex BILAT DATE OF EXAM: 03/17/2020 COMPARISON: NONE CLINICAL HISTORY: I65.29 Carotid stenosis. Slurred speech episodes per patient. EXAM MEASUREMENTS: RIGHT: Peak Systolic Velocity (PSV) cm/sec ----- Right CCA: 82.0 ----- Right ICA: 109.2 ----- Right ECA: 85.3 ICA/CCA ratio: 1.3 RIGHT: End Diastole cm/sec ----- Right CCA: 22.6 ----- Right ICA: 33.3 ----- Right ECA: 16.0 LEFT: Peak Systolic Velocity (PSV) cm/sec ----- Left CCA: 82.7 ----- Left ICA: 101.6 ----- Left ECA: 81.5 ICA/CCA ratio: 1.2 LEFT: End Diastole cm/sec ----- Left CCA: 18.4 ----- Left ICA: 27.2 ----- Left ECA: 14.6 VERTEBRALS (direction of flow): Right Vertebral: Antegrade Left Vertebral: Antegrade Rhythm: Normal Very mild intimal wall thickening at bilateral carotid bifurcation, and PSV is wnl bilaterally. Inci dental findings noted of bilateral thyroid nodules. Some plaquing is at the right external carotid artery origin. IMPRESSION: Intimal wall thickening without significant flow-limiting stenosis. Criteria for Assigning % of Stenosis / Diameter reduction (Estimation based on the indirect measurements of the internal carotid artery velocities (ICA PSV). 1. Normal (no stenosis)=ICA PSV < 125 cm/s: ratio < 2.0: ICA EDV<40 cm/s. 2. Less than 50% stenosis=ICA PSV < 125 cm/s: ratio < 2.0: ICA EDV<40 cm/s. 3. 50 to 69% stenosis=ICA PSV of 125 to 230 cm/s: ration 2.0 ? 4.0: ICA EDV 40-100 cm/s. 4. Greater than 70% stenosis to near occlusion= ICA PSV > 230 cm/s: ratio > 4.0: ICA EDV > 100 cm/s. 5. Near occlusion= ICA PSV velocities may be low or undetectable: variable ratio and ICA EDV. 6. Total occlusion=unable to detect flow.
== END ==
LOC: RADUSWWP 15:57
PROVIDERS: ATTEND Psychiatry & Neurology Neurology
DX: I65.23 Occlusion and stenosis of bilateral carotid arteries (principal)
CPT/HCPCS: 93880

== ENCOUNTER 2020-12-31 16:18 | Observation (INO) | payer MEDICARE, OTHER ==
[2020-12-31] MEDS ORDERED: ASPIRIN 81 MG PO STA (16:40)
--- NOTE | 2020-12-31 16:45 | ED ---
General Adult HPI - General Chief complaint: Chest Pain Stated complaint: chest pressure Time Seen by Provider: 12/31/20 16:30 Source: patient, family, RN notes reviewed Mode of arrival: wheelchair Limitations: no limitations - History of Present Illness Initial comments: Patient is a pleasant 70-year-old female presenting to the emergency department chest discomfort. Onset of symptoms was 2-3 days ago. Symptoms have been worse in the morning. Discomfort feels like pressure without radiation. Patient does have some associated mild dyspnea. Symptoms do worsen somewhat with exertion. No nausea or diaphoresis. No history of similar symptoms previously. Patient is currently symptom-free. Symptoms are worse were 3 or 12/12. - Related Data Home Medications Medication Instructions Recorded Confirmed Sertraline [Zoloft] 50 mg PO DAILY 06/20/14 09/13/18 traZODone HCL [Desyrel] 50 mg PO HS 08/05/14 09/13/18 Docusate [Colace] 100 mg PO BID 02/05/18 09/13/18 Methylnaltrexone [place] [Relistor] 450 mg PO QAM 02/05/18 09/13/18 Multivitamin,Therapeutic [Thera] 1 tab PO DAILY 02/09/18 09/13/18 Triamcinolone Acetonide [Nasacort] 1 spray EA NOSTRIL DAILY PRN 02/09/18 09/13/18 polyethylene glycoL 3350 [Miralax] 17 gm PO DAILY 02/09/18 09/13/18 Calcium Carb/Vitamin D3/Vit K1 1 each PO DAILY 03/12/18 09/13/18 [Citracal Soft Chew] Fish Oil/Dha/Epa [Fish Oil 1,200 1 each PO DAILY 03/12/18 09/13/18 mg Fish Oil] Morphine Sulfate/Naltrexone 1 cap PO TID 09/13/18 09/13/18 [Embeda ER 30-1.2 mg Capsule] Allergies Allergy/AdvReac Type Severity Reaction Status Date / Time No Known Allergies Allergy Verified 12/31/20 18:08 Review of Systems ROS Statement: Those systems with pertinent positive or pertinent negative responses have been documented in the HPI. ROS Other: All systems not noted in ROS Statement are negative. Constitutional: Denies: fever Eyes: Denies: eye pain ENT: Denies: ear pain Respiratory: Reports: as per HPI Cardiovascular: Reports: as per HPI, chest pain Endocrine: Denies: fatigue Gastrointestinal: Denies: abdominal pain Genitourinary: Denies: dysuria Musculoskeletal: Denies: back pain Skin: Denies: rash Neurological: Denies: weakness Past Medical History Past Medical History: Fibromyalgia, GERD/Reflux, Musculoskeletal Disorder, Osteo arthritis (OA) Additional Past Medical History / Comment(s): chronic constipation History of Any Multi-Drug Resistant Organisms: None Reported Past Surgical History: No Surgical Hx Reported Additional Past Surgical History / Comment(s): neck fusion surgery 2003, bunion 2011, sinus surgery; colonoscopy Past Anesthesia/Blood Transfusion Reactions: No Reported Reaction Past Psychological History: No Psychological Hx Reported Smoking Status: Never smoker Past Alcohol Use History: None Reported Past Drug Use History: None Reported - Past Family History Mother Family Medical History: Cancer Sister(s) Family Medical History: Cancer General Exam Limitations: no limitations General appearance: alert, in no apparent distress Head exam: Present: normocephalic Eye exam: Present: normal appearance Neck exam: Present: normal inspection Respiratory exam: Present: normal lung sounds bilaterally. Absent: chest wall tenderness Cardiovascular Exam: Present: regular rate, normal rhythm, normal heart sounds Expanded Peripheral pulses: 2+: Radial (R), Radial (L), Posterior Tibialis (R), Posterior Tibialis (L) GI/Abdominal exam: Present: soft. Absent: tenderness Extremities exam: Present: normal inspection. 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 PVC present. IN 140. QRS 150. QT 390. QTC 447. Normal axis. Incomplete right bundle-branch block. Q waves V1 and V2. No acute ST change. Medical Decision Making - Medical Decision Making Patient reevaluated and resting comfortably in bed. Patient remained symptom free at this time. Patient updated on results and plan. Case was discussed with Dr. Monique, covering for Dr. Woodward, who will admit. - Lab Data Result diagrams: 12/31/20 16:43 04/29/21 16:43 Lab Results 12/31/20 12/31/20 12/31/20 Range/Units 16:43 16:43 16:43 WBC 7.4 (3.8-10.6) k/uL RBC 4.83 (3.80-5.40) m/uL Hgb 14.7 (11.4-16.0) gm/dL Hct 42.7 (34.0-46.0) % MCV 88.3 (80.0-100.0) fL MCH 30.3 (25.0-35.0) pg MCHC 34.3 (31.0-37.0) g/dL RDW 12.9 (11.5-15.5) % Plt Count 185 (150-450) k/uL MPV 7.7 Neutrophils % 74 % Lymphocytes % 18 % Monocytes % 5 % Eosinophils % 2 % Basophils % 1 % Neutrophils # 5.5 (1.3-7.7) k/uL Lymphocytes # 1.3 (1.0-4.8) k/uL Monocytes # 0.4 (0-1.0) k/uL Eosinophils # 0.1 (0-0.7) k/uL Basophils # 0.1 (0-0.2) k/uL PT 10.5 (9.0-12.0) sec INR 1.0 (<1.2) APTT 22.1 (22.0-30.0) sec D-Dimer 0.44 (<0.60) mg/L FEU Sodium 138 (137-145) mmol/L Potassium 3.8 (3.5-5.1) mmol/L Chloride 104 (98-107) mmol/L Carbon Dioxide 31 H (22-30) mmol/L Anion Gap 3 mmol/L BUN 16 (7-17) mg/dL Creatinine 0.67 (0.52-1.04) mg/dL Est GFR (CKD-EPI)AfAm >90 (>60 ml/min/1.73 sqM) Est GFR (CKD-EPI)NonAf 90 (>60 ml/min/1.73 sqM) Glucose 126 H (74-99) mg/dL Calcium 9.6 (8.4-10.2) mg/dL Magnesium 2.2 (1.6-2.3) mg/dL Total Bilirubin 0.3 (0.2-1.3) mg/dL AST 37 H (14-36) U/L ALT 34 (4-34) U/L Alkaline Phosphatase 55 (38-126) U/L Troponin I (0.000-0.034) ng/mL Total Protein 6.6 (6.3-8.2) g/dL Albumin 4.3 (3.5-5.0) g/dL 12/31/20 Range/Units 16:43 WBC (3.8-10.6) k/uL RBC (3.80-5.40) m/uL Hgb (11.4-16.0) gm/dL Hct (34.0-46.0) % MCV (80.0-100.0) fL MCH (25.0-35.0) pg MCHC (31.0-37.0) g/dL RDW (11.5-15.5) % Plt Count (150-450) k/uL MPV Neutrophils % % Lymphocytes % % Monocytes % % Eosinophils % % Basophils % % Neutrophils # (1.3-7.7) k/uL Lymphocytes # (1.0-4.8) k/uL Monocytes # (0-1.0) k/uL Eosinophils # (0-0.7) k/uL Basophils # (0-0.2) k/uL PT (9.0-12.0) sec INR (<1.2) APTT (22.0-30.0) sec D-Dimer (<0.60) mg/L FEU Sodium (137-145) mmol/L Potassium (3.5-5.1) mmol/L Chloride (98-107) mmol/L Carbon Dioxide (22-30) mmol/L Anion Gap mmol/L BUN (7-17) mg/dL Creatinine (0.52-1.04) mg/dL Est GFR (CKD-EPI)AfAm (>60 ml/min/1.73 sqM) Est GFR (CKD-EPI)NonAf (>60 ml/min/1.73 sqM) Glucose (74-99) mg/dL Calcium (8.4-10.2) mg/dL Magnesium (1.6-2.3) mg/dL Total Bilirubin (0.2-1.3) mg/dL AST (14-36) U/L ALT (4-34) U/L Alkaline Phosphatase (38-126) U/L Troponin I <0.012 (0.000-0.034) ng/mL Total Protein (6.3-8.2) g/dL Albumin (3.5-5.0) g/dL - Radiology Data Radiology results: image reviewed (Chest x-ray shows no acute process.) Disposition Clinical Impression: Chest pain Disposition: ADMITTED IP TO THIS HOSP Is patient prescribed a controlled substance at d/c from ED?: No Referrals: Burton Woodward MD [Primary Care Provider] - 1-2 days Decision Time: 18:12
[2020-12-31 16:52] LABS: Basophils # (A) 0.1 k/uL (0-0.2); Basophils % (A) 1 %; Eosinophils # (A) 0.1 k/uL (0-0.7); Eosinophils % (A) 2 %; HCT 42.7 % (34.0-46.0); HGB 14.7 gm/dL (11.4-16.0); Lymphocytes # (A) 1.3 k/uL (1.0-4.8); Lymphocytes % (A) 18 %; MCH 30.3 pg (25.0-35.0); MCHC 34.3 g/dL (31.0-37.0); MCV 88.3 fL (80.0-100.0); Mean Platelet Volume 7.7; Monocytes # (A) 0.4 k/uL (0-1.0); Monocytes % (A) 5 %; Neutrophils # (A) 5.5 k/uL (1.3-7.7); Neutrophils % (A) 74 %; Platelet Count 185 k/uL (150-450); RBC 4.83 m/uL (3.80-5.40); RDW 12.9 % (11.5-15.5); WBC 7.4 k/uL (3.8-10.6)
--- NOTE | 2020-12-31 17:01 | XR ---
EXAMINATION TYPE: XR chest 2V DATE OF EXAM: 12/31/2020 COMPARISON: NONE HISTORY: Chest pain and lightheadedness since yesterday. TECHNIQUE: Frontal and lateral views of the chest are obtained. FINDINGS: There are chronic parenchymal changes bilaterally without suspicious focal air space opaci ty, pleural effusion, or pneumothorax seen. The cardiac silhouette size is within normal limits. Ant erior fusion plate cervical thoracic junction noted. Overlying EKG leads. IMPRESSION: No acute cardiopulmonary process.
[2020-12-31 17:03] LABS: ALT 34 U/L (4-34); AST 37 U/L (14-36); African American GFR (CKD) >90 (>60 ml/min/1.73 sqM); Albumin 4.3 g/dL (3.5-5.0); Alkaline Phosphatase 55 U/L (38-126); Anion Gap 3 mmol/L; Blood Urea Nitrogen 16 mg/dL (7-17); Calcium 9.6 mg/dL (8.4-10.2); Carbon Dioxide 31 mmol/L (22-30); Chloride 104 mmol/L (98-107); Glucose 126 mg/dL (74-99); Magnesium 2.2 mg/dL (1.6-2.3); Non-African American GFR(CKD) 90 (>60 ml/min/1.73 sqM); Potassium 3.8 mmol/L (3.5-5.1); Sodium 138 mmol/L (137-145); Total Bilirubin 0.3 mg/dL (0.2-1.3); Total Protein 6.6 g/dL (6.3-8.2)
[2020-12-31 17:14] LABS: D-Dimer 0.44 mg/L FEU (<0.60); Partial Thromboplastin Time 22.1 sec (22.0-30.0); Prothrombin Time 10.5 sec (9.0-12.0)
[2020-12-31] MEDS ORDERED: NITROGLYCERIN SL TABS 0.4 MG TAB SUBLINGUAL PRN (18:13)
[2020-12-31] MEDS ORDERED: traZODone HCL 50 MG TAB PO SCH (21:00)
[2020-12-31] MEDS ORDERED: amLODIPine 2.5 MG TAB PO SCH (21:00)
[2020-12-31] MEDS: MORPHINE SULFATE ER 30 MG TABLET PO SCH (21:25)
[2020-12-31] MEDS ORDERED: ACETAMINOPHEN TAB 325 MG TAB PO PRN (23:15)
[2021-01-01] MEDS: NITROGLYCERIN OINT 1 INCH/GM PACKET TOPICAL SCH ×2 (00:14→05:13)
--- NOTE | 2021-01-01 01:38 | P.HPIM ---
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 she is not sure if it wakes her up from sleep , but she would feel it when she wakes up , associated with dizziness and feeling as if she will faint. she would rest and goes away after an hour or so. she would not experience any similar issues for the rest of her day. she denies any CAD history she denies any associated heart racing, nausea, vomiting, fever, chills, SOB, or diaphoresis. she denies any URI symptoms or GI bleeding , denies any changes in her bowel or urinary habits. in the ED, blood work unremarkable, vital signs stable . EKG showed NSR with PVC she is currently complaining of frontal headache, 6/10 in severity and requesting some tylenol Review of Systems Pertinent positives as noted in HPI. All other systems were reviewed and are negative Past Medical History Past Medical History: Fibromyalgia, GERD/Reflux, Musculoskeletal Disorder, Osteoarthritis (OA) Additional Past Medical History / Comment(s): chronic constipation History of Any Multi-Drug Resistant Organisms: None Reported Past Surgical History: No Surgical Hx Reported Additional Past Surgical History / Comment(s): neck fusion surgery 2003, bunion 2011, sinus surgery; colonoscopy Past Anesthesia/Blood Transfusion Reactions: No Reported Reaction Past Psychological History: No Psychological Hx Reported Smoking Status: Never smoker Past Alcohol Use History: None Reported Past Drug Use History: None Reported - Past Family History Mother Family Medical History: Cancer Sister(s) Family Medical History: Cancer Medications and Allergies Home Medications Medication Instructions Recorded Confirmed Type Sertraline [Zoloft] 50 mg PO DAILY 06/20/14 12/31/20 History traZODone HCL [Desyrel] 25 mg PO HS 08/05/14 12/31/20 History Methylnaltrexone [place] [Relistor] 300 - 450 mg PO DAILY 02/05/18 12/31/20 History polyethylene glycoL 3350 [Miralax] 8.5 gm PO DAILY 02/09/18 12/31/20 History Aspirin EC [Ecotrin Low Dose] 81 mg PO DAILY 12/31/20 12/31/20 History Atorvastatin Calcium [Lipitor] 40 mg PO DAILY 12/31/20 12/31/20 History Donepezil [Aricept] 5 mg PO DAILY 12/31/20 12/31/20 History Morphine Sulfate ER [Ms Contin] 30 mg PO BID 12/31/20 12/31/20 History Oxybutynin Chloride 5 mg PO Q48H 12/31/20 12/31/20 History amLODIPine [Norvasc] 2.5 mg PO HS 12/31/20 12/31/20 History Allergies Allergy/AdvReac Type Severity Reaction Status Date / Time No Known Allergies Allergy Verified 12/31/20 18:08 Physical Exam Vitals: Vital Signs Temp Pulse Pulse Pulse Resp BP BP 12/31/20 20:45 99.3 F 69 16 148/51 12/31/20 20:28 98.0 F 71 18 140/79 12/31/20 16:38 73 12/31/20 16:19 98.2 F 80 16 147/74 Pulse Ox 12/31/20 20:45 96 12/31/20 20:28 98 12/31/20 16:38 12/31/20 16:19 97 Intake and Output 12/31/20 12/31/20 12/31/20 06:59 14:59 22:59 Other: Weight 45.359 kg Constitutional: No acute distress, conversant, pleasant Eyes: Anicteric sclerae, moist conjunctiva, Pupils equal round reactive to light ENMT: NC/AT Oropharynx clear, no erythema, or exudates Neck: Supple, FROM, no masses, or JVD No carotid bruits No thyromegaly Lungs: Clear to auscultation Clear to percussion Normal respiratory effort, no accessory muscle use Cardiovascular: Heart regular in rate and rhythm, No murmurs, gallops, or rubs No peripheral edema Abdominal: Soft Nontender, no guarding, rebound or rigidity Abdomen moving with respiration Normoactive bowel sounds No hepatomegaly, No splenomegaly No palpable mass No abdominal wall hernia noted Skin: Normal temperature, tone, texture, turgor No induration No subcutaneous nodules No rash, lesions No ulcers Extremities: No digital cyanosis No clubbing Pedal pulses intact and symmetrical Radial pulses intact and symmetrical No calf tenderness Psychiatric: Alert and oriented to person, place and time Appropriate affect fair judgement Neuro Muscles Strength 4/5 in all 4 extremities Sensation to light touch grossly present throughout Cranial nerves II-XII grossly intact No focal sensory deficits Lymphatics: no palpable cervical or supraclavicular , or inguinal lymph nodes Results CBC & Chem 7: 12/31/20 16:43 12/31/20 16:43 Labs: Abnormal Lab Results - Last 24 Hours (Table) 12/31/20 Range/Units 16:43 Carbon Dioxide 31 H (22-30) mmol/L Glucose 126 H (74-99) mg/dL AST 37 H (14-36) U/L Assessment and Plan Assessment: Atypical chest pain rule out ACS Cardiac monitoring Trend troponins Cardiology evaluation Monitor vital signs Aspirin Check lipid profile Chronic conditions Chronic low back pain and resume home pain medications Peripheral neuropathy PT eval CODE STATUS: Full code DVT prophylaxis: Heparin subcu 3 times a day Discussed with: Patient, ER, RN Anticipated length of stay less than [address]: Home A total of 65 minutes was spent on the care of this complex patient more than 50% of the time was spent in counseling and care coordination.
[2021-01-01 02:44] VITALS: TEMP 98.1
[2021-01-01 07:30] VITALS: BP 147/69; PULSE 74; RESP 16
[2021-01-01] MEDS ORDERED: HEPARIN SODIUM,PORCINE/PF 5,000 UNIT/0.5 ML SYRINGE SQ SCH (08:00)
[2021-01-01] MEDS ORDERED: DOBUTamine DRIP for NUC MED 500 MG in DEXTROSE/WATER 1 250ML.BAG IV PRN (08:45)
[2021-01-01] MEDS ORDERED: SERTRALINE 50 MG TAB PO SCH (09:00)
[2021-01-01] MEDS ORDERED: ATORVASTATIN 40 MG TAB PO SCH (09:00)
[2021-01-01] MEDS ORDERED: ASPIRIN 325 MG TAB PO SCH (09:00)
[2021-01-01] MEDS ORDERED: DONEPEZIL 5 MG TAB PO SCH (09:00)
[2021-01-01] MEDS ORDERED: OXYBUTYNIN CHLORIDE 5 MG TAB PO SCH (09:00)
[2021-01-01] MEDS ORDERED: ASPIRIN 81 MG PO SCH (09:00)
[2021-01-01] MEDS ORDERED: polyethylene glycoL 3350 17 GM POWD.PACK PO SCH (09:00)
[2021-01-01] MEDS: MORPHINE SULFATE ER 30 MG TABLET PO SCH (09:07)
--- NOTE | 2021-01-01 10:03 | P.CRDCN ---
History of Present Illness History of present illness: HISTORY OF PRESENTING ILLNESS This is a pleasant 70-year-old female past medical history significant for hypertension, dyslipidemia, former nicotine dependence and dementia. He de nies prior history of coronary artery disease and does not follow in the office with radiologist. We have been asked to see in consultation for chest pain. The patient is seen and examined resting comfortably sitting in bed. She is mildly confused regarding the circumstances surrounding her admission to the hospital. According to the patient yesterday while she was doing some stretching she felt dizzy and lightheaded. His of the only symptoms that she can recall. I did call and speak with her who states for the previous 2 mornings she has woken up complaining of feeling short of breath with a heaviness on her chest and also feeling lightheaded. The symptoms last for approximately one hour and seemed to subside as the morning goes on. Her relates that the chest discomfort was constant for one hour and did not worsen with activity or exertion. He also states the patient has recently been under the care of Dr. Rodriguez secondary to memory and cognitive impairment that has been progressing. DIAGNOSTICS EKG reveals sinus mechanism, right bundle branch block, PVC and nonspecific ST abnormalities. Telemetry tracings indicate sinus rhythm. Chest xray negative for an acute cardiopulmonary process. Laboratory reviewed, CBC unremarkable, d-dimer 0.44, sodium 138, potassium 3.8, creatinine 0.67, cardiac enzymes negative 3. Current cardiac medications include amlodipine 2.5 mg daily, aspirin 81 mg daily and atorvastatin 40 mg daily. REVIEW OF SYSTEMS At the time of my exam: CONSTITUTIONAL: Denies fever or chills. CARDIOVASCULAR: Denies chest pain, shortness of breath, orthopnea, PND or palpitations. RESPIRATORY: Denies cough. GASTROINTESTINAL: Denies abdominal pain, diarrhea, constipation, nausea or vomiting. MUSCULOSKELETAL: Denies myalgias. NEUROLOGIC: Denies numbness, tingling, headacbe or weakness. ENDOCRINE: Denies fatigue, weight change, polydipsia or polyurina. GENITOURINARY: Denies burning, hematuria or urgency with micturation. HEMATOLOGIC: Denies history of anemia or bleeding. PHYSICAL EXAMINATION Blood pressure 147/69 heart rate 74 afebrile and maintaining oxygen saturation on room air. CONSTITUTIONAL: No apparent distress. HEENT: Head is normocephalic. Pupils are equal, round. Sclerae anicteric. Mucous membranes of the mouth are moist. No JVD. No carotid bruit. CHEST EXAMINATION: Lungs are clear to auscultation. No chest wall tenderness is noted on palpation or with deep breathing. HEART EXAMINATION: Regular rate and rhythm. S1, S2 heard. No murmurs, gallops or rub. ABDOMEN: Soft, nontender. Positive bowel sounds. EXTREMITIES: 2+ peripheral pulses, no lower extremity edema and no calf tenderness. NEUROLOGIC EXAMINATION: Patient is awake, alert and oriented x3. ASSESSMENT Chest pain, atypical Hypertension Dyslipidemia Former nicotine dependence Memory impairment PLAN An acute coronary event has been ruled out. Pain is atypical to be related to angina. Obtain 2-D echocardiogram and Doppler study to assess cardiac structure and function. Perform dobutamine stress echocardiogram to assess for stress-induced cardiac ischemia. Lipid profile is pending. If stress test is normal she may be discharged from a cardiac perspective. Thank you kindly for this consultation. Nurse Practitioner note has been reviewed, I agree with a documented findings and plan of care. Patient was seen and examined. Past Medical History Past Medical History: Fibromyalgia, GERD/Reflux, Musculoskeletal Disorder, Osteoarthritis (OA) Additional Past Medical History / Comment(s): chronic constipation History of Any Multi-Drug Resistant Organisms: None Reported Past Surgical History: No Surgical Hx Reported Additional Past Surgical History / Comment(s): neck fusion surgery 2003, bunion 2011, sinus surgery; colonoscopy Past Anesthesia/Blood Transfusion Reactions: No Reported Reaction Past Psychological History: No Psychological Hx Reported Smoking Status: Never smoker Past Alcohol Use History: None Reported Past Drug Use History: None Reported - Past Family History Mother Family Medical History: Cancer Sister(s) Family Medical History: Cancer Medications and Allergies Home Medications Medication Instructions Recorded Confirmed Type Sertraline [Zoloft] 50 mg PO DAILY 06/20/14 12/31/20 History traZODone HCL [Desyrel] 25 mg PO HS 08/05/14 12/31/20 History Methylnaltrexone [place] [Relistor] 300 - 450 mg PO DAILY 02/05/18 12/31/20 History polyethylene glycoL 3350 [Miralax] 8.5 gm PO DAILY 02/09/18 12/31/20 History Aspirin EC [Ecotrin Low Dose] 81 mg PO DAILY 12/31/20 12/31/20 History Atorvastatin Calcium [Lipitor] 40 mg PO DAILY 12/31/20 12/31/20 History Donepezil [Aricept] 5 mg PO DAILY 12/31/20 12/31/20 History Morphine Sulfate ER [Ms Contin] 30 mg PO BID 12/31/20 12/31/20 History Oxybutynin Chloride 5 mg PO Q48H 12/31/20 12/31/20 History amLODIPine [Norvasc] 2.5 mg PO HS 12/31/20 12/31/20 History Allergies Allergy/AdvReac Type Severity Reaction Status Date / Time No Known Allergies Allergy Verified 12/31/20 18:08 Physical Exam Vitals: Vital Signs Temp Pulse Pulse Pulse Resp BP BP 01/01/21 07:16 98.1 F 74 16 147/69 01/01/21 02:00 98.1 F 61 18 136/77 01/01/21 01:41 73 69 16 12/31/20 20:45 99.3 F 69 16 148/51 12/31/20 20:28 98.0 F 71 18 140/79 12/31/20 16:38 73 12/31/20 16:19 98.2 F 80 16 147/74 Pulse Ox 01/01/21 07:16 98 01/01/21 02:00 97 01/01/21 01:41 12/31/20 20:45 96 12/31/20 20:28 98 12/31/20 16:38 12/31/20 16:19 97 Intake and Output 12/31/20 01/01/21 01/01/21 22:59 06:59 14:59 Intake Total 240 Balance 240 Intake: Oral 240 Other: Voiding Method Toilet Toilet # Voids 1 1 Weight 45.359 kg Results 12/31/20 16:43 12/31/20 16:43 Cardiac Enzymes 12/31/20 12/31/20 12/31/20 Range/Units 16:43 16:43 20:08 AST 37 H (14-36) U/L Troponin I <0.012 <0.012 (0.000-0.034) ng/mL 12/31/20 Range/Units 23:00 AST (14-36) U/L Troponin I <0.012 (0.000-0.034) ng/mL Coagulation 12/31/20 Range/Units 16:43 PT 10.5 (9.0-12.0) sec APTT 22.1 (22.0-30.0) sec CBC 12/31/20 Range/Units 16:43 WBC 7.4 (3.8-10.6) k/uL RBC 4.83 (3.80-5.40) m/uL Hgb 14.7 (11.4-16.0) gm/dL Hct 42.7 (34.0-46.0) % Plt Count 185 (150-450) k/uL Comprehensive Metabolic Panel 12/31/20 Range/Units 16:43 Sodium 138 (137-145) mmol/L Potassium 3.8 (3.5-5.1) mmol/L Chloride 104 (98-107) mmol/L Carbon Dioxide 31 H (22-30) mmol/L BUN 16 (7-17) mg/dL Creatinine 0.67 (0.52-1.04) mg/dL Glucose 126 H (74-99) mg/dL Calcium 9.6 (8.4-10.2) mg/dL AST 37 H (14-36) U/L ALT 34 (4-34) U/L Alkaline Phosphatase 55 (38-126) U/L Total Protein 6.6 (6.3-8.2) g/dL Albumin 4.3 (3.5-5.0) g/dL Current Medications Generic Name Dose Route Start Last Admin Trade Name Freq PRN Reason Stop Dose Admin Acetaminophen 650 mg 12/31/20 23:15 12/31/20 23:23 Acetaminophen Tab 325 Mg Tab PO 650 mg Q6HR PRN Administration Fever and/ or Pain Amlodipine Besylate 2.5 mg 12/31/20 21:00 12/31/20 22:37 Amlodipine 2.5 Mg Tab PO 2.5 mg HS CHEO Administration Aspirin 325 mg 01/01/21 09:00 Aspirin 325 Mg Tab PO DAILY [facility] Aspirin 81 mg 01/01/21 09:00 Aspirin 81 Mg PO DAILY [facility] Atorvastatin Calcium 40 mg 01/01/21 09:00 Atorvastatin 40 Mg Tab PO DAILY [facility] Donepezil HCl 5 mg 01/01/21 09:00 Donepezil 5 Mg Tab PO DAILY [facility] Heparin Sodium (Porcine) 5,000 unit 01/01/21 08:00 Heparin Sodium,Porcine/Pf 5,000 Unit/0.5 Ml Syringe SQ Q8HR [facility] Morphine Sulfate 30 mg 12/31/20 21:00 12/31/20 21:25 Morphine Sulfate Er 30 Mg Tablet PO 30 mg BID [facility] Administration Protocol Nitroglycerin 0.4 mg 12/31/20 18:13 Nitroglycerin Sl Tabs 0.4 Mg Tab SUBLINGUAL Q5M PRN Chest Pain Nitroglycerin 0.5 inch 01/01/21 00:00 01/01/21 05:13 Nitroglycerin Oint 1 Inch/Gm Packet TOPICAL Not Given Q6HR [facility] Oxybutynin Chloride 5 mg 01/01/21 09:00 Oxybutynin Chloride 5 Mg Tab PO Q48H [facility] Polyethylene Glycol 8.5 gm 01/01/21 09:00 Polyethylene Glycol 3350 17 Gm Powd.Pack PO DAILY [facility] Sertraline HCl 50 mg 01/01/21 09:00 Sertraline 50 Mg Tab PO DAILY [facility] Trazodone HCl 25 mg 12/31/20 21:00 12/31/20 21:26 Trazodone Hcl 50 Mg Tab PO 25 mg HS [facility] Administration Intake and Output 12/31/20 01/01/21 01/01/21 22:59 06:59 14:59 Intake Total 240 Balance 240 Intake: Oral 240 Other: Voiding Method Toilet Toilet # Voids 1 1 Weight 45.359 kg 12/31/20 16:43 12/31/20 16:43
--- NOTE | 2021-01-01 12:00 | ECHOF ---
Referral Reason:cp MEASUREMENTS -------- HEIGHT: 152.4 cm WEIGHT: 45.4 kg BP: 147/69 RVIDd: 3.5 cm (< 3.3) IVSd: 1.2 cm (0.6 - 1.1) LVIDd: 3.4 cm (3.9 - 5.3) LVPWd: 1.2 cm (0.6 - 1.1) IVSs: 1.8 cm LVIDs: 1.8 cm LVPWs: 1.8 cm LAESV Index (A-L): 32.57 ml/m Ao Diam: 2.8 cm (2.0 - 3.7) AV Cusp: 2.2 cm (1.5 - 2.6) MV EXCURSION: 14.881 mm (> 18.000) MV EF SLOPE: 90 mm/s (70 - 150) EPSS: 0.5 cm MV E Giles: 0.77 m/s MV DecT: 262 ms MV A Giles: 0.88 m/s MV E/A Ratio: 0.87 RAP: 5.00 mmHg RVSP: 31.76 mmHg FINDINGS -------- Sinus rhythm. This was a technically good study. The left ventricular size is normal. There is mild concentric left ventricular hypertrophy. Overa ll left ventricular systolic function is normal with, an EF between 55 - 60 %. The diastolic fillin g pattern is normal for the age of the patient 9.18. The right ventricle is mildly enlarged. LA is midly dilated 29-33ml/m2. The right atrial size is normal. Interatrial and interventricular septum intact. The aortic valve is trileaflet, and appears structurally normal. No aortic stenosis or regurgitation. The mitral valve is normal. Mild mitral regurgitation is present. The tricuspid valve appears structurally normal. Mild tricuspid regurgitation present. Right vent ricular systolic pressure is normal at < 35 mmHg. The right ventricular systolic pressure, as measu red by Doppler, is 31.76mmHg. There is no pulmonic regurgitation present. The aortic root size is normal. Normal inferior vena cava with normal inspiratory collapse consistent with estimated right atrial pre ssure of 5 mmHg. There is no pericardial effusion. CONCLUSIONS -------- 1. There is mild concentric left ventricular hypertrophy. 2. Overall left ventricular systolic function is normal with, an EF between 55 - 60 %. 3. The diastolic filling pattern is normal for the age of the patient 9.18 4. The right ventricle is mildly enlarged. 5. LA is midly dilated 29-33ml/m2. 6. The aortic valve is trileaflet, and appears structurally normal. No aortic stenosis or regurgitati on. 7. Mild mitral regurgitation is present. 8. Mild tricuspid regurgitation present. 9. There is no pericardial effusion. [employer] MANAGER: Oralia Torres RDCS
--- NOTE | 2021-01-01 12:49 | ECHOS ---
STRESS ECHOCARDIOGRAM LUMASON: Vial INDICATIONS: Chest pain. MEDICATIONS: BASELINE HEART RATE: 63 BASELINE BLOOD PRESSURE: 137/59 MAXIMUM HEART RATE: 148 MAXIMUM BLOOD PRESSURE: 146/60 85% MPHR: 128 100% MPHR: 150 METS: MAXIMUM STAGE REACHED: TOTAL EXERCISE TIME: CLINICAL INFORMATION: Baseline rhythm is sinus mechanism, rate of 63, normal axis and intervals. Baseline blood pressure 137/59 mmHg. Patient received infusion of dobutamine per protocol. Peak rate of 148 beats per minute which is equal to 88% maximum predicted heart rate. Peak blood pressure 146/60 mmHg. Electrocardiograph monitoring revealed occasional PVCs. There was no evidence of diagnostic ischemic ST deviation. Baseline echocardiogram revealed normal wall motion. At peak infusion, there was normal wall motion augmentation with no hypokinesis or dyskinesis. CONCLUSION: 1. Normal electrocardiograph response to dobutamine infusion with occasional PVCs. 2. Normal stress echocardiogram with no evidence of stress-induced ischemia. MMODL / IJN: [id number] /
[2021-01-01 13:44] LABS: Anion Gap 5.3 mmol/L (4.00-12.00); BUN/Creat Ratio 33.33 Ratio (12.00-20.00); Carbon Dioxide 30.7 mmol/L (21.6-31.8); Chol/HDL Ratio 1.63; Non-African American GFR(CKD) 92.4 (60.0-200.0); Potassium 4.2 mmol/L (3.5-5.5)
--- NOTE | 2021-01-01 17:12 | P.DS ---
Providers Date of admission: 12/31/20 18:13 Expected date of discharge: 01/01/21 Attending physician: Dorothy Monique MD Consults: 12/31/20 18:13 Consult Physician Urgent Consulting Provider: Coral Winter Consult Reason/Comments: cp Do you want consulting provider notified?: Yes Primary care physician: 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 she is not sure if it wakes her up from sleep , but she would feel it when she wakes up , associated with dizziness and feeling as if she will faint. she would rest and goes away after an hour or so. she would not experience any similar issues for the rest of her day. she denies any CAD history she denies any associated heart racing, nausea, vomiting, fever, chills, SOB, or diaphoresis. she denies any URI symptoms or GI bleeding , denies any changes in her bowel or urinary habits. in the ED, blood work unremarkable, vital signs stable . EKG showed NSR with PVC she is currently complaining of frontal headache, 6/10 in severity and requesting some tylenol Hospital Course: Atypical chest pain rule out ACS Cardiac monitoring had some occasional PVCs Trended troponins were negative Cardiology evaluation recommended dobutamine stress echo = no evidence of stress induced ischemia, EF 55-60%, no WMA, mild RVE, no diastolic dysfunction Aspirin continued on discharge Check lipid profile = LDL/HDL/TG - 35/71/50 Pt will follow up with PCP Assessment: Gen: awake, alert HEENT: normocephalic, atraumatic, good hearing acuity, moist mucous membranes Resp: good air exchange, breathing comfortably with no accessory muscle use CVS: good distal perfusion x 4, GI: soft, NTTP, ND : no SPT, no CVAT, polk catheter not present MSK: no pitting edema, no clubbing Neuro: non-focal, moving all extremities Psych: cooperative, euthymic mood Patient Condition at Discharge: Good Plan - Discharge Summary Discharge Rx Participant: No New Discharge Prescriptions: Continue Sertraline [Zoloft] 50 mg PO DAILY traZODone HCL [Desyrel] 25 mg PO HS Methylnaltrexone [place] [Relistor] 300 - 450 mg PO DAILY polyethylene glycoL 3350 [Miralax] 8.5 gm PO DAILY Atorvastatin Calcium [Lipitor] 40 mg PO DAILY Oxybutynin Chloride 5 mg PO Q48H Morphine Sulfate ER [Ms Contin] 30 mg PO BID Donepezil [Aricept] 5 mg PO DAILY amLODIPine [Norvasc] 2.5 mg PO HS Aspirin EC [Ecotrin Low Dose] 81 mg PO DAILY Discharge Medication List Sertraline [Zoloft] 50 mg PO DAILY 06/20/14 [History] traZODone HCL [Desyrel] 25 mg PO HS 08/05/14 [History] Methylnaltrexone [place] [Relistor] 300 - 450 mg PO DAILY 02/05/18 [History] polyethylene glycoL 3350 [Miralax] 8.5 gm PO DAILY 02/09/18 [History] Aspirin EC [Ecotrin Low Dose] 81 mg PO DAILY 12/31/20 [History] Atorvastatin Calcium [Lipitor] 40 mg PO DAILY 12/31/20 [History] Donepezil [Aricept] 5 mg PO DAILY 12/31/20 [History] Morphine Sulfate ER [Ms Contin] 30 mg PO BID 12/31/20 [History] Oxybutynin Chloride 5 mg PO Q48H 12/31/20 [History] amLODIPine [Norvasc] 2.5 mg PO HS 12/31/20 [History] Follow up Appointment(s)/Referral(s): Janee Arroyo MD [STAFF PHYSICIAN] - 2 Weeks Burton Woodward MD [Primary Care Provider] - 1-2 days Patient Instructions/Handouts: Chest Pain (DC) Discharge Disposition: HOME SELF-CARE
== END 2021-01-01 13:32 | disposition home or self-care (01) ==
LOC: EC 16:18 → 6NMEDSUR 18:13
PROVIDERS: ADMIT Internal Medicine; ATTEND Internal Medicine
DX: R07.89 Other chest pain (principal); R42 Dizziness and giddiness; R51.9 Headache, unspecified; R06.02 Shortness of breath; F03.90 Unspecified dementia, unspecified severity, without behavioral disturbance, psychotic disturbance, mood disturbance, and anxiety; M79.7 Fibromyalgia; I45.10 Unspecified right bundle-branch block; K21.9 Gastro-esophageal reflux disease without esophagitis; M19.90 Unspecified osteoarthritis, unspecified site; K59.09 Other constipation; G89.29 Other chronic pain; M54.5 Low back pain; G62.9 Polyneuropathy, unspecified; E78.5 Hyperlipidemia, unspecified; I10 Essential (primary) hypertension; Z79.82 Long term (current) use of aspirin; Z79.891 Long term (current) use of opiate analgesic; Z79.899 Other long term (current) drug therapy; Z98.1 Arthrodesis status; Z87.891 Personal history of nicotine dependence; Z98.890 Other specified postprocedural states; Z80.9 Family history of malignant neoplasm, unspecified
CPT/HCPCS: 96372; 93005 ×2; 99285; 36415; 93306; 93351; 85379; 80061; 80053; 80048; 84443; 83735; 84484; 85025; 85610; 85730; 87636; 71046; G0378 ×2; J1644